=== PATIENT | female | born 1980 | race Hispanic/Latino ===

== ENCOUNTER 2021-01-23 09:13 | Outpatient (CLI) | payer OTHER | END 2021-01-23 09:14 | disposition home or self-care (01) | LOC: BICRAD 09:13 | PROVIDERS: ATTEND Family Medicine | DX: R07.81 Pleurodynia (principal) ==

== ENCOUNTER 2021-02-24 10:24 | Outpatient (CLI) | payer OTHER | END 2021-02-24 10:25 | disposition home or self-care (01) | LOC: BICRAD 10:24 | PROVIDERS: ATTEND Family Medicine | DX: R07.9 Chest pain, unspecified (principal); M25.552 Pain in left hip | CPT/HCPCS: 71046 ==